=== PATIENT | male | born 1970 | race Caucasian/White ===

== ENCOUNTER → 2021-10-22 | Day surgery (SDC) | payer OTHER ==
[~2021-10-22] VITALS: Ht 177.8 cm; Wt 99.8 kg
[~2021-10-22] MED LIST: COZAAR 100MG T100 MG PO; DAILY VALUE1 EACH PO; NORVASC5 MG PO; ZOCOR10 MG PO
== END | disposition home or self-care (01) ==
LOC: FAS 10-05 09:45
DX: Z12.11 Encounter for screening for malignant neoplasm of colon (principal); D12.0 Benign neoplasm of cecum; K63.89 Other specified diseases of intestine
CPT/HCPCS: J2250; J2704; J7120